=== PATIENT | female | born 1985 | race Caucasian/White ===

== ENCOUNTER → 2017-03-14 | Outpatient (REF) ==
[~2017-03-14] MED LIST: PRENATAL VITAMI1 TA5 PO; TYLENOL PM
== END ==
LOC: WSOH 15:18
DX: Z02.89 Encounter for other administrative examinations (principal)

== ENCOUNTER → 2017-03-17 | Outpatient (REF) | LOC: WSOH 07:53 | DX: Z02.89 Encounter for other administrative examinations (principal) ==